=== PATIENT | male | born 1935 | race Asian ===

== ENCOUNTER → 2018-05-06 | Outpatient (CLI) | payer OTHER ==
[~2018-05-06] MED LIST: GADOBUTROL 10 ML VIAL IVP ONE
== END ==
LOC: FLAB 06:34
PROVIDERS: ATTEND Family Medicine
DX: M79.89 Other specified soft tissue disorders (principal); M50.322 Other cervical disc degeneration at C5-C6 level; M46.92 Unspecified inflammatory spondylopathy, cervical region; M48.02 Spinal stenosis, cervical region; M79.2 Neuralgia and neuritis, unspecified
CPT/HCPCS: 72156; A9585; 82565-PO

== ENCOUNTER 2018-10-22 12:48 | Emergency (ER) | payer OTHER | END 2018-10-22 14:35 | disposition home or self-care (01) | LOC: CED 12:48 ==